=== PATIENT | female | born 1930 | race Caucasian/White ===

== ENCOUNTER 2017-09-09 11:49 | Outpatient (CLI) | payer OTHER ==
[2017-09-09] MEDS ORDERED: ONDANSETRON 4 MG/2 ML VIAL ONE (12:59)
[2017-09-09] MEDS ORDERED: NALOXONE HCL 0.4 MG/ML INJ ONE (13:00)
[2017-09-09] MEDS ORDERED: FLUMAZENIL 0.5 MG/5 ML MDV IVP ONE (13:00)
[2017-09-09] MEDS ORDERED: fentaNYL 100 MCG/2 ML INJ ONE (13:01)
[2017-09-09] MEDS ORDERED: MIDAZOLAM 2 MG/2 ML VIAL ONE (13:01)
[2017-09-09] MEDS ORDERED: fentaNYL 100 MCG/2 ML INJ IVP PRN (13:03)
[2017-09-09] MEDS ORDERED: MIDAZOLAM 2 MG/2 ML VIAL IVP PRN (13:03)
[2017-09-09] MEDS ORDERED: NALOXONE HCL 0.4 MG/ML INJ IVP PRN (13:03)
[2017-09-09] MEDS ORDERED: MEPERIDINE 25 MG/ML SYR IVP PRN (13:03)
[2017-09-09] MEDS ORDERED: FLUMAZENIL 0.5 MG/5 ML MDV IVP PRN (13:03)
[2017-09-09] MEDS ORDERED: NS 1,000 ML IV SCH (13:15)
--- NOTE | 2017-09-09 13:15 | PDPROPOC ---
Sedation Plan of Care Sedation Plan of Care: vital signs stable, mental status noted, patient educated of risks, benefits, alternatives, patient can tolerate sedation ASA Classification: ASA 1 Planned drugs: fentanyl, midazolam Mallampati Score: Class 1 Mallampati Reference Image: Patient passed 3-3-2 rule?: Yes
--- NOTE | 2017-09-09 13:16 | PDGENHP ---
History & Physical Chief Complaint: LEFT SHOULDER PAIN History of Present Illness: LEFT SHOULDER Pertinent Past, Social, Family History: MACULAR DEGENERATION Relevant Physical Exam: FALL WITH LEFT SHOULDER PAIN Cardiorespiratory Assessment: RRR, CLEAR
[2017-09-09 13:18] VITALS: TEMP 98
[2017-09-09 14:32] VITALS: PULSE 76; RESP 12
[2017-09-09] MEDS ORDERED: ONDANSETRON 4 MG/2 ML VIAL IVP PRN (14:57)
[2017-09-09] MEDS ORDERED: ACETAMINOPHEN 325 MG TAB PO PRN (14:57)
[2017-09-09 15:27] VITALS: BP 118/69; O2SAT 91
== END 2017-09-09 15:44 | disposition home or self-care (01) ==
LOC: FIMAGING 11:49
PROVIDERS: ATTEND Family Medicine
DX: M75.82 Other shoulder lesions, left shoulder (principal); M12.812 Other specific arthropathies, not elsewhere classified, left shoulder; F41.9 Anxiety disorder, unspecified; M81.0 Age-related osteoporosis without current pathological fracture; M24.012 Loose body in left shoulder
CPT/HCPCS: 73221; J2250; J3010; J2310; J2405

== ENCOUNTER → 2018-08-05 | Outpatient (CLI) | payer OTHER | LOC: CIMAGING 09:02 | PROVIDERS: ATTEND Family Medicine | DX: M24.851 Other specific joint derangements of right hip, not elsewhere classified (principal); M24.852 Other specific joint derangements of left hip, not elsewhere classified; Z96.642 Presence of left artificial hip joint | CPT/HCPCS: 73521-PO ==

== ENCOUNTER → 2018-09-13 | Outpatient (CLI) | payer OTHER | LOC: FIMAGING 14:23 | PROVIDERS: ATTEND Family Medicine | DX: Z12.31 Encounter for screening mammogram for malignant neoplasm of breast (principal); Z13.820 Encounter for screening for osteoporosis; M85.89 Other specified disorders of bone density and structure, multiple sites; Z78.0 Asymptomatic menopausal state ==

== ENCOUNTER → 2019-04-01 | Outpatient (CLI) | payer OTHER | LOC: CIMAGING 13:17 ==